=== PATIENT | male | born 1965 | race Caucasian/White ===

== ENCOUNTER → 2018-01-19 12:06 | Outpatient (CLI) | payer OTHER, SELFPAY ==
--- NOTE | 2018-01-19 12:12 | RAD_ITS ---
STUDY: X-RAY - CERVICAL SPINE REASON FOR EXAM: Male, 52 years old. Neck pain. TECHNIQUE: 5 view(s) of the cervical spine were obtained including oblique views. COMPARISON: None FINDINGS: Normal anterior atlantoaxial articulation. Normal odontoid process. There is straightening of the normal cervical lordosis. There is multi-level endplate spondylosis. Disc space narrowing at the C5-C6 and C6-C7 levels. Normal visualized intervertebral neuroforamina. The soft tissue structures are unremarkable. RAD/Cerv Spine 4 or 5 Views IMPRESSION: Anterior spondylosis at the C5-C6 and C6-C7 levels. Straightening of the normal cervical lordosis. Electronically Signed: Jozef Hernández MD at 12:57 EDT Tel [phone], Service support ,
== END ==
PROVIDERS: Family Provider Internal Medicine; PCP Internal Medicine; Visit Provider Internal Medicine
DX: M54.2 Cervicalgia (principal)
CPT/HCPCS: 72050

== ENCOUNTER → 2018-04-03 12:35 | Outpatient (CLI) | payer OTHER, SELFPAY ==
[2018-04-03 13:01] LABS: Absolute Lymphocyte Count 1.79 X10^3/ul (0.83-4.51); Absolute Neutrophil Count 3.4 X10^3/uL (2.0-7.7); Basophil# 0.05 X10^3/uL; Basophil% 0.9 % (0-1); Eosinophils% 1.8 % (0-5); Hematocrit 41.1 % (40-54); Hemoglobin 14.6 g/dl (13.0-16.5); Lymphocyte # 1.79 X10^3/ul (4.0); Lymphocyte % 31.5 % (19-41); Mean Corp Hgb Conc 35.5 g/gl (32-36); Mean Corpuscular Hgb 29.9 pg (27.0-32.0); Mean Corpuscular Volume 84.2 fL (80-94); Mean Platelet Vol. 8.9 fl (6.2-12.0); Monocyte# 0.36 X10^3/uL; Monocyte% 6.3 % (0-10); Neutrophil # 3.38 X10^3/uL (2.7-7.7); Neutrophil % 59.3 % (47-70); POSITIVE COUNT NO; POSITIVE DIFFERENTIAL NO; POSITIVE MORPHOLOGY NO; Platelet Count 335 K/mm3 (150-450); RBC Distribution Width CV 12.3 % (11.6-14.6); RBC Distribution Width SD 36.4 fl (35.1-43.9); Red Blood Count 4.88 M/mm3 (4.6-6.2); White Blood Count 5.7 K/mm3 (4.4-11.0)
[2018-04-03 13:11] LABS: ALB/GLOB Ratio 1.1 RATIO (0.9-2.4); AST(SGOT) 16 U/L (15-37); Alanine Aminotransfer ALT/SGPT 33 U/L (16-61); Alkaline Phosphatase 78 U/L (45-117); Anion Gap 9 (5-15); BUN 12 mg/dL (7-18); BUN/Creat Ratio 11.9 RATIO (10-20); CRP < 2.90 mg/L (0.0-3.0); Calcium,Total 8.6 mg/dL (8.5-10.1); Chloride 106 mmol/L (98-107); Creatinine, Serum 1.01 mg/dL (0.70-1.30); EST Glomerular Filtration Rate 82 mL/min (>60); Est Glom Filt Rate - Afr Amer 99 mL/min (>60); Globulin 3.5 g/dL (2.2-4.2); Glucose 95 mg/dL (74-106); Potassium 4.3 mmol/L (3.5-5.1); Protein, Total 7.5 g/dL (6.4-8.2); Sodium Level 143 mmol/L (136-145)
== END ==
PROVIDERS: Family Provider Internal Medicine; PCP Internal Medicine; Visit Provider Internal Medicine
DX: R10.9 Unspecified abdominal pain (principal)
CPT/HCPCS: 36415; 74177; 80053; 85025; 86140; Q9967

== ENCOUNTER → 2018-05-13 08:58 | Outpatient (CLI) | payer OTHER, SELFPAY ==
[2018-05-15 13:10] LABS: Endomysial Antibody IgA Negative (Negative); Immunoglobulin A 53 mg/dL (90-386)
[2018-05-15 13:43] LABS: t-Transglutaminase IgA <2 U/mL (0-3)
== END ==
PROVIDERS: Family Provider Internal Medicine; PCP Internal Medicine; Referring Provider Physician Assistant; Visit Provider Physician Assistant
DX: R10.84 Generalized abdominal pain (principal)
CPT/HCPCS: 36415; 82784; 83516; 86255

== ENCOUNTER 2018-05-25 07:53 | Day surgery (SDC) | payer OTHER, SELFPAY ==
[2018-05-25] VITALS (7 sets, daily range): BP systolic 94–139; BP diastolic 60–86; PULSE 77–90; RESP 16–18; TEMP 36.5–37.1; O2SAT 94–97; BMI 32.1
--- NOTE | 2018-05-25 | IMM_PTH ---
PATIENT: NICCI JACOBSON LOC: EN U#:[id number] AGE/SX: 52/M ROOM: RE05/25/[address]: Dr. Song Crane MD : 1965 BED: DIS: 05/25/2018 SPEC #: [id number] RECD: 05/25/18 14:32 STATUS: RYAN REEric #: [id number] MO: 05/25/18 00:[address]: Song Crane DEPT: IMMUNOHISTOCHEMISTRY RECD BY: Citlalli Gruber ENTERED: 05/25/18 14:39 SP TYPE: IMMUNO OTHR DR: Dr. Danuta Bejarano MD Tissues: B - Stomach, NOS Procedures: H Pylori (initial) PHYSICIAN & INSTITUTION [place] [address] SPECIMEN INFORMATION: Tissue Source: B - Antral biopsy Clinical Info: GERD; diarrhea; abdominal pain Specimen Number: [id number] CPT code: 02418 METHODOLOGY: Deparaffinized sections of prefer/formalin-fixed tissue or PAP/DQ stained slides are incubated with monoclonal/polyclonal antibodies/oligonucleotide probes. Localization is made via biotin free immunoperoxidase method. Appropriate controls are performed and reacted as expected. Results on target cell population are indicated in the following table: RESULTS: ANTIBODY / CLONE RESULT Block B H Pylori (polyclonal) negative These tests were developed and their performance characteristics determined by [facility]. They may not have been cleared or approved by the U.S. Food and Drug Administration. The FDA has determined that such clearance or approval is not necessary. INTERPRETATION: B. Antral biopsy: Negative for Helicobacter pylori organisms. SJ:rolanda 05/27/18
--- NOTE | 2018-05-25 | COLBX_PTH ---
PATIENT: NICCI JACOBSON LOC: EN U#:[id number] AGE/SX: 52/M ROOM: RE05/25/[address]: Dr. Song Crane MD : 1965 BED: DIS: 05/25/2018 SPEC #: [id number] RECD: 05/25/18 13:46 STATUS: RYAN MORRIS #: [id number] MO: 05/25/18 00:[address]: Song Crane DEPT: SURGICAL PATHOLOGY RECD BY: Jarad Eason ENTERED: 05/25/18 13:48 SP TYPE: COLON BX OTHR DR: Dr. Danuta Bejarano MD Tissues: A - Small intestine biopsy B - Gastric mucous membrane C - COLON BIOPSY Procedures: Surgery Specimen Level IV HEADER OPERATION: Colonoscopy, EGD PRE-OP DIAGNOSIS: GERD, diarrhea, abdominal pain TISSUE SUBMITTED: A - Small bowel biopsy, B - Antral biopsy for H. pylori and pathology, C - Random colon biopsies MICROSCOPIC DIAGNOSIS A. Small bowel, biopsy: A fragment of small intestinal mucosa, no pathologic diagnosis. B. Antral biopsy: Mild gastritis. C. Colon, random biopsy: Fragments of colonic mucosa, no pathologic diagnosis. SJ:rolanda 05/26/18 COMMENT B. The results of immunohistochemistry for Helicobacter pylori will be reported separately ([id number]). MICROSCOPIC DESCRIPTION Slides are reviewed. B. The specimen shows fragments of gastric mucosa with chronic inflammatory cell infiltrates in the lamina propria consisting of lymphocytes and plasma cells, consistent with mild chronic gastritis. GROSS DESCRIPTION A - Received in fixative is one container labeled with the patient's name and designated small bowel biopsy. The specimen consists of one irregular fragment of light oliver soft tissue that measures 0.8 x 0.2 x 0.1 cm. The specimen is totally submitted in one cassette. B - Received in fixative is one container labeled with the patient's name and designated antral biopsy. The specimen consists of two irregular fragments of light oliver soft tissue that in aggregate measure 0.2 x 0.2 x 0.1 cm. A few minute fragments of oliver soft tissue are also noted measuring 0.1 cm in greatest dimension. The specimen is totally submitted in one cassette. C - Received in fixative is one container labeled with the patient's name and designated random colon biopsy. The specimen consists of multiple irregular fragments of light oliver soft tissue that in aggregate measure 1 x 1 x 0.1 cm. The specimen is totally submitted in one cassette. / SJ:rg 05/25/18 TC:4 CPT: 45801 x3
--- NOTE | 2018-05-25 09:27 | OP.ENDO_ITS ---
Patient Name: Nghia Dumont Procedure Date: 05/25/2018 8:57 AM Date of : 1965 Age: 52 Procedure: Upper GI endoscopy Indications: Generalized abdominal pain, Gastro-esophageal reflux disease, Diarrhea Providers: Song Crane MD Referring MD: Song Crane MD Medicines: See the Anesthesia note for documentation of the administered medications Complications: No immediate complications. Procedure: Pre-Anesthesia Assessment: - Prior to the procedure, a History and Physical was performed, and patient medications and allergies were reviewed. The patient's tolerance of previous anesthesia was also reviewed. The risks and benefits of the procedure and the sedation options and risks were discussed with the patient. All questions were answered, and informed consent was obtained. Prior Anticoagulants: The patient has taken no previous anticoagulant or antiplatelet agents. ASA Grade Assessment: II - A patient with mild systemic disease. After reviewing the risks and benefits, the patient was deemed in satisfactory condition to undergo the procedure. After obtaining informed consent, the endoscope was passed under direct vision. Throughout the procedure, the patient's blood pressure, pulse, and oxygen saturations were monitored continuously. The gastroscope was introduced through the mouth, and advanced to the second part of duodenum. The upper GI endoscopy was accomplished without difficulty. The patient tolerated the procedure well. Scope In: 9:05:21 AM Scope Out: 9:07:56 AM Total Procedure Duration Time 0 hours 2 minutes 35 seconds Findings: The Z-line was regular and was found 40 cm from the incisors. No biopsies or other specimens were collected for this exam. Localized mild inflammation characterized by erythema was found in the prepyloric region of the stomach. Biopsies were taken with a cold forceps for Helicobacter pylori testing. The examined duodenum was normal. Biopsies for histology were taken with a cold forceps for evaluation of celiac disease. Impression: - Z-line regular, 40 cm from the incisors. No specimens collected. - Gastritis. Biopsied. - Normal examined duodenum. Biopsied. Recommendation: - Await pathology results. - Repeat upper endoscopy PRN for surveillance based on pathology results. - Return to my office in 1 week. - Continue present medications. Procedure Code(s): --- Professional --- 63524, Esophagogastroduodenoscopy, flexible, transoral; with biopsy, single or multiple Diagnosis Code(s): --- Professional --- K29.70, Gastritis, unspecified, without bleeding R10.84, Generalized abdominal pain K21.9, Gastro-esophageal reflux disease without esophagitis R19.7, Diarrhea, unspecified CPT copyright 2017 [employer]. All rights reserved. The codes documented in this report are preliminary and upon kickboxing instructor review may be revised to meet current compliance requirements. MD Song Arroyo MD 05/25/2018 9:27:15 AM This report has been signed electronically. Number of Addenda: 0 Note Initiated On: 05/25/2018 8:57 AM
--- NOTE | 2018-05-25 09:30 | OP.ENDO_ITS ---
Patient Name: Nghia Dumont Procedure Date: 05/25/2018 9:10 AM Date of : 1965 Age: 52 Procedure: Colonoscopy Indications: Generalized abdominal pain, Chronic diarrhea Providers: Song Crane MD Referring MD: Song Crane MD Medicines: See the Anesthesia note for documentation of the administered medications Patient Profile: Last Colonoscopy: more than 3 years ago. Complications: No immediate complications. Procedure: Pre-Anesthesia Assessment: - Prior to the procedure, a History and Physical was performed, and patient medications and allergies were reviewed. The patient's tolerance of previous anesthesia was also reviewed. The risks and benefits of the procedure and the sedation options and risks were discussed with the patient. All questions were answered, and informed consent was obtained. Prior Anticoagulants: The patient has taken no previous anticoagulant or antiplatelet agents. ASA Grade Assessment: II - A patient with mild systemic disease. After reviewing the risks and benefits, the patient was deemed in satisfactory condition to undergo the procedure. - Prior to the procedure, a History and Physical was performed, and patient medications and allergies were reviewed. The patient's tolerance of previous anesthesia was also reviewed. The risks and benefits of the procedure and the sedation options and risks were discussed with the patient. All questions were answered, and informed consent was obtained. Prior Anticoagulants: The patient has taken no previous anticoagulant or antiplatelet agents. ASA Grade Assessment: III - A patient with severe systemic disease. After reviewing the risks and benefits, the patient was deemed in satisfactory condition to undergo the procedure. After I obtained informed consent, the scope was passed under direct vision. Throughout the procedure, the patient's blood pressure, pulse, and oxygen saturations were monitored continuously. The colonoscope was introduced through the anus and advanced to the ileocecal valve. The colonoscopy was performed without difficulty. The patient tolerated the procedure well. The quality of the bowel preparation was good. Scope In: 9:10:55 AM Scope Withdrawal Time 0 hours 6 minutes 39 seconds Scope Out: 9:22:37 AM Total Procedure Duration Time 0 hours 11 minutes 42 seconds Findings: Multiple small-mouthed diverticula were found in the sigmoid colon. Biopsies for histology were taken with a cold forceps from the entire colon for evaluation of microscopic colitis. The exam was otherwise without abnormality. Impression: - Diverticulosis in the sigmoid colon. Biopsied. - The examination was otherwise normal. Recommendation: - Discharge patient to home. - Resume previous diet. - Continue present medications. - Await pathology results. - Repeat colonoscopy in 10 years for screening purposes. - Return to my office in 1 week. Procedure Code(s): --- Professional --- 25816, Colonoscopy, flexible; with biopsy, single or multiple Diagnosis Code(s): --- Professional --- R10.84, Generalized abdominal pain K52.9, Noninfective gastroenteritis and colitis, unspecified K57.30, Diverticulosis of large intestine without perforation or abscess without bleeding CPT copyright 2017 [employer]. All rights reserved. The codes documented in this report are preliminary and upon thermometer production worker review may be revised to meet current compliance requirements. MD Song Arroyo MD 05/25/2018 9:30:41 AM This report has been signed electronically. Number of Addenda: 0 Note Initiated On: 05/25/2018 9:10 AM
== END 2018-05-25 10:09 | disposition home or self-care (01) ==
LOC: EN 07:54 → AC 07:56
PROVIDERS: Family Provider Internal Medicine; PCP Internal Medicine; Referring Provider Surgery; Visit Provider Surgery
PROC: 0DJD8ZZ Inspection of Lower Intestinal Tract, Via Natural or Artificial Opening Endoscopic (ICD-10-PCS; CPT 45378; principal; 2018-05-25 09:10)
DX: K52.9 Noninfective gastroenteritis and colitis, unspecified (principal); K57.30 Diverticulosis of large intestine without perforation or abscess without bleeding; K29.70 Gastritis, unspecified, without bleeding; K21.9 Gastro-esophageal reflux disease without esophagitis; R19.7 Diarrhea, unspecified; R10.84 Generalized abdominal pain; F41.9 Anxiety disorder, unspecified
CPT/HCPCS: 43239; 45380; 88305; 88342; J7120; J1610

== ENCOUNTER → 2018-05-27 12:59 | Outpatient (CLI) | payer SELFPAY ==
--- NOTE | 2018-05-27 13:08 | CT_ITS ---
STUDY: CT CHEST WITHOUT CONTRAST REASON FOR EXAM: Male, 52 years old. This is an over read of cardiac calcium scoring examination. RADIATION DOSAGE (If Supplied By Facility): CTDIvol = ( 12.19 ) mGy, DLP = ( 268.17 ) mGycm TECHNIQUE: Transaxial imaging was performed without the administration of intravenous contrast material. Individualized dose optimization techniques were used for this CT. COMPARISON: None. FINDINGS: The lungs are normal. There is no demonstrated pleural abnormality. There are calcifications of the coronary arteries. There are multiple small lymph nodes within the mediastinum, which are normal in size and morphology most compatible with reactive lymph hyperplasia. Normal hilar regions. Normal unenhanced pulmonary arteries. Normal aorta arch and descending thoracic aorta. Normal osseous structures. Small hiatal hernia. CT/Limited Chest CT w/CCTA IMPRESSION: No acute abnormality is seen. Electronically Signed: Jozef Hernández MD at 9:23 EDT Tel [phone], Service support ,
[2018-05-27 13:21] VITALS: BP 147/93; PULSE 74; RESP 14; O2SAT 98; BMI 32.1
[2018-05-27 14:00] VITALS: BP 156/87; PULSE 74; RESP 16; O2SAT 92
[2018-05-27 14:30] VITALS: BP 145/89; PULSE 77; RESP 16; O2SAT 94
--- NOTE | 2018-05-27 14:30 | NURSING ---
PT DID NOT TAKE PRE-MEDS FOR CALCIUM SCORING DUE TO MISUNDERSTANDING. ON ARRIVAL, PT'S HR 74-86 BPM. IV ACCESS OBTAINED AND PT GIVEN 5 MG METOPROLOL IVP WITH 5ML NS FLUSH. PT'S HR LOWERED ENOUGH TO COMPLETE CALCIUM SCORING. PT MONITORED IN RADIOLOGY RECOVERY BAY FOR 30 MINUTES POST SCAN. ON D/C PT'S VS, 145/89, HR 77, 16 RPM. PT DENIES DIZZINESS. STEADY GAIT TO ELEVATOR.
--- NOTE | 2018-06-03 07:30 | CA.SCORE ---
Calcium Scoring Date of Study:: 05/27/18 Coronary Calcium Scoring: Coronary artery calcification. High-resolution computed tomographic imaging of the chest was performed on 05/27/2018 with particular attention paid to the coronary arteries. Images from the examination were analyzed for the presence and extent of coronary artery calcification using coronary calcification quantification software. The patient tolerated the procedure well and there were no complications. The results of the coronary calcification analysis are provided below. Left main coronary artery score of 0. Left anterior descending artery mild calcification noted in the proximal mid and distal of 36.6. Left circumflex artery mild calcification of 2.98. Right coronary artery score of 0. Total Agagston score 39.5. The above is suggestive of mild atherosclerotic plaque burden. Impression: Mild coronary atherosclerosis noted in predominantly the left anterior descending artery territory. No high-grade obstruction noted.
== END ==
PROVIDERS: Family Provider Internal Medicine; PCP Internal Medicine; Referring Provider Internal Medicine; Visit Provider Internal Medicine
DX: Z13.6 Encounter for screening for cardiovascular disorders (principal)
CPT/HCPCS: 75571; 76380; A4216

== ENCOUNTER 2018-07-23 05:33 | Day surgery (SDC) | payer OTHER, SELFPAY ==
[2018-07-08 13:59] VITALS: BMI 32.1
[2018-07-23 05:57] VITALS: BP 146/87; PULSE 94; RESP 16; TEMP 36.9; O2SAT 99; BMI 32.8
[2018-07-23] MEDS: Cefazolin 2 GM in 0.9% Normal Saline 100 ML IV (07:12)
--- NOTE | 2018-07-23 07:15 | HERN_PTH ---
PATIENT: NICCI JACOBSON LOC: [facility] – [place] U#:[id number] AGE/SX: 52/M ROOM: RE07/23/[address]: Dr. Song Crane MD : 1965 BED: DIS: 07/23/2018 SPEC #: [id number] RECD: 07/23/18 09:20 STATUS: RYAN MORRIS #: [id number] MO: 07/23/18 07:[address]: Song Crane DEPT: SURGICAL PATHOLOGY RECD BY: Juve Garibay ENTERED: 07/23/18 12:52 SP TYPE: Hernia OTHR DR: Dr. Danuta Bejarano MD Tissues: HERNIA Procedures: Surgery Specimen Level II HEADER OPERATION: Umbilical hernia repair with mesh PRE-OP DIAGNOSIS: Umbilical hernia without obstruction or gangrene TISSUE SUBMITTED: Hernia sac MICROSCOPIC DIAGNOSIS Hernia sac: Pieces of fibroadipose and fibroconnective tissue, consistent with hernia sac. SJ:rolanda 07/24/18 MICROSCOPIC DESCRIPTION Slides are reviewed. GROSS DESCRIPTION Received in fixative is one container labeled with the patient's name and designated hernia sac. The specimen consists of two irregular fragments of pink-yellow oliver soft tissue that in aggregate measure 3 x 2.2 x 1.5 cm. The smaller fragment is submitted in its entirety with a in home sales representative section of the larger fragment in one cassette. / AM:rolanda 07/23/18 TC:5 CPT: 49039
--- NOTE | 2018-07-23 07:23 | PCM.OPRPT ---
Problem List (1) Umbilical hernia without obstruction or gangrene Status: Acute Report of Operation Date of Procedure: 07/23/18 Pre-Operative Diagnosis: Umbilical hernia without obstruction and without gangrene Post-Operative Diagnosis: Same Surgery/Procedure Performed:: Umbilical hernia repair with mesh Type of Anesthesia:: General Anesthesiologist: Jl Mcguire Drains: None Estimated Blood Loss (mL): < 25 cc Description of Procedure: Patient was brought into the operating room. Placed in the supine position. Under excellent general endotracheal intubation the abdomen was sterilely prepped and draped in the usual fashion. Local was injected infraumbilically. A curvilinear incision was made. Dissection was carried down to the fascia a incarcerated umbilical hernia containing fat was identified. I transected this fat sent it to pathology for permanent sectioning. I was left with a very small defect and I did not think that placing a preperitoneal mesh was appropriate because I would have had to open the hole further. I decided to close the hole primarily. Prior to this I cleaned the fascia on top of the anterior abdominal wall free of clear transecting the umbilicus off of the fascia. Once I had approximately a silver dollar space free and clear I closed the small umbilical defect with a #1 Nurolon I then placed a peritenon mesh on top of the fascia I sutured it to the fascia with interrupted 2-0 silk's. I injected local. I brought the umbilicus back down to the fascia with a single suture of 2-0 Vicryl. I brought the subcu together with 2-0 Vicryl deep dermals of 3-0 Vicryl then a running 4-0 Monocryl. Dermabond was applied [place] cotton was applied sterile dressings were applied and the patient tolerated the procedure well. - Admit VTE Documentation VTE Present on Admission: No VTE Mechan Device Prophylaxis: SCD's VTE Pharm Prophylaxis ordered?: No Reason prophylaxis not ordered:: Treatment Not Indicated
--- NOTE | 2018-07-23 07:25 | DCINST_ITS ---
Discharge Diet: Light diet - advance as tolerated Discharge Activity: Return to Normal Activity, May Drive - when you are no longer taking narcotic pain medications., May Shower - with the bandage in place 1-2 days after surgery. Lifting Restrictions: 20 pounds for 8 weeks. Additional Activity Instructions:: Climbing stairs is fine, walking is encouraged. Sitting in bed may be uncomfortable. Sitting up using your lateral muscles (sitting up sideways) is usually more comfortable. Do not drive, work heavy equipment of sign legal documents for 24 hours. If your hernia repair was an ingunial repair, you may have scrotal swelling, an ice pack and/or athletic support can provide more comfort. Pain medications may cause nausea, you should typically eat light foods as you take your pain medications. Pain medications may also cause constipation. If you have difficulty with this, discuss with your doctor. Call your doctor if your incision/area has: Continuous Slow Oozing, Sudden Increased Bleeding, Increased Pain/ Swelling, Increased Redness, Foul Smelling Discharge Call your doctor if you observe: Fever of 101 or Higher Suture Line Care: Avoid Pulling/Pushing, Avoid Pinching/Bending Additional Dressing/Incision Instructions:: Leave the operative bandage on for 2-3 days. When you remove the bandage, leave the steri-strips on place until your follow up appointment or they fall off. Allergies/Adverse Reactions: Allergies diphenhydramine HCl [From Benadryl] Adverse Reaction (Verified 07/08/18 13:59) Unknown MADE ME HOT Medications to take at Discharge Acetaminophen [Tylenol Tablet] 650 mg PO Q6H PRN PRN #0 tab 04/21/15 Escitalopram Oxalate [Lexapro] 20 mg PO DAILY #0 tab 04/21/15 Lorazepam [Ativan] 0.5 mg PO BID PRN PRN 05/20/18 Multivitamin [Multiple Vitamins] 1 ea PO DAILY 05/20/18 Omeprazole Magnesium [Prilosec Otc] 20 mg PO BID 05/20/18 Phenylephrine/Dm/Acetaminop/GG [Mucinex Fast-Max Cold-Flu Tab] 1 ea PO Q4H PRN 07/07/18 Oxycodone HCl/Acetaminophen [Percocet 5/325] 1 - 2 tab PO Q4H PRN PRN 5 Days #30 tab 07/23/18 The following prescriptions were given: Oxycodone HCl/Acetaminophen [Percocet 5/325] 1 - 2 tab PO Q4H PRN PRN 5 Days #30 tab PRN Reason: Pain Primary Care Physician: Danuta Bejarano MD [Primary Care Provider] - Test Results: Test results from this visit will be discussed in further detail at your follow- up appointment, if applicable. Please Follow Up With: Song Crane MD - [phone] When: Plan to have a follow up appointment in 7 days. Call to schedule.
[2018-07-23] MEDS: Bupivacaine Mpf 0.5% 30 ML VIAL (07:40)
[2018-07-23 08:21] VITALS: BP 133/95; BP 146/87; PULSE 111; RESP 16; TEMP 36.1; O2SAT 94
[2018-07-23 08:30] VITALS: BP 126/83; BP 146/87; PULSE 93; RESP 16; O2SAT 98
[2018-07-23 08:47] VITALS: BP 118/83; BP 146/87; PULSE 90; RESP 18; TEMP 36.2; O2SAT 97
[2018-07-23 10:16] VITALS: BP 142/82; BP 146/87; PULSE 80; RESP 16; TEMP 36.8; O2SAT 97
== END 2018-07-23 10:29 | disposition home or self-care (01) ==
LOC: SDC 05:34 → AC 05:35
PROVIDERS: Family Provider Internal Medicine; PCP Internal Medicine; Referring Provider Surgery; Visit Provider Surgery
PROC: (CPT 49587; principal; 2018-07-23 07:00)
DX: K42.0 Umbilical hernia with obstruction, without gangrene (principal); F41.9 Anxiety disorder, unspecified; K21.9 Gastro-esophageal reflux disease without esophagitis; Z79.899 Other long term (current) drug therapy
CPT/HCPCS: 49587; 88302; J7120; C1781; J2405

== ENCOUNTER 2019-04-21 11:03 | Emergency (ER) | payer OTHER, SELFPAY ==
[2019-04-21 11:04] VITALS: BP 134/84; PULSE 81; RESP 17; TEMP 36.7; O2SAT 97; BMI 31.8
--- NOTE | 2019-04-21 11:46 | RAD_ITS ---
STUDY: X-RAY - RIGHT HAND, ATTENTION THIRD FINGER REASON FOR EXAM: Male, 53 years old. Laceration following injury. TECHNIQUE: 3 view(s) of the finger were obtained. COMPARISON: None. FINDINGS: Normal metacarpal head. Normal metacarpophalangeal joint. Normal proximal phalanx. Normal middle phalanx. Normal distal phalanx. Normal proximal interphalangeal joint. There is moderate degenerative arthrosis of the distal interphalangeal joint. RAD/Finger(s) Min 2 Views IMPRESSION: Degenerative joint disease, as described above. No fracture is seen. Electronically Signed: Jozef Hernández, at 12:49 EDT , Service support ,
--- NOTE | 2019-04-21 12:28 | ED.DCSUM_ITS ---
- ER Visit Summary Date of Service: 04/21/19 Chief Complaint: [Injury to right middle finger History of Present Illness: The patient is a 53 M [presents to the emergency department with injury to the right middle finger that occurred prior to arrival in the emergency department. Patient states that he was leaving his office when he accidentally caught his right middle finger in the door. Patient is left-hand dominant. Patient up-to-date on tetanus. Patient has no medical history otherwise.] Physical Examination: [Is a 1 Center meter laceration to the volar aspect of the distal phalanx. Patient has some diffuse bony tenderness of the distal phalanx. Patient has a 5% subungual hematoma of the proximal nail.] Test Results: [The right middle finger obtained read by myself as no acute fractures.] Emergency Department Course and Treatment: [Care-wound sterilely draped and prepped. Patient had a digital block performed using 1% lidocaine total of 6 cc. Wound cleansed with Shur-Clens and irrigated with copious saline. Using 5- 0 nylon a total of 2 single interrupted sutures placed with good wound edge approximation. Patient tired procedure well.] Treatment Plan: [Follow-up with primary care physician in 10 days for suture removal. Patient advised to return if increasing pain, redness, swelling, purulent drainage, or conditions worsen anyway.] Disposition: [Discharged home stable condition Impression: [Crush injury right middle finger Laceration right middle finger 1 cm-simple repair] This note was generated with [employer] dictation software. It may contain incorrect words, spelling, and punctuation that were not noted in review of the chart prior to signing ED Disposition - Plan for ED Patient: Referrals: Danuta Bejarano MD [Primary Care Provider] -
--- NOTE | 2019-04-21 12:30 | ED.DEP ---
ED Disposition - Plan for ED Patient: Instructions: CRUSH INJURY, Hand/Finger, LACERATION, Hand Referrals: Danuta Bejarano MD [Primary Care Provider] - 10 Day for suture removal
== END 2019-04-21 12:38 | disposition home or self-care (01) ==
LOC: ED 12:05
PROVIDERS: Emergency Provider Emergency Medicine; Family Provider Internal Medicine; PCP Internal Medicine
DX: S61.212A Laceration without foreign body of right middle finger without damage to nail, initial encounter (principal); S67.192A Crushing injury of right middle finger, initial encounter; W23.0XXA Caught, crushed, jammed, or pinched between moving objects, initial encounter; Y93.9 Activity, unspecified; Y92.9 Unspecified place or not applicable; Y99.9 Unspecified external cause status; Z79.899 Other long term (current) drug therapy
CPT/HCPCS: 12001; 73140; 99282

== ENCOUNTER → 2019-07-23 15:13 | Outpatient (CLI) | payer OTHER, SELFPAY ==
[2019-07-23 15:37] LABS: ALB/GLOB Ratio 1.3 RATIO (0.9-2.4); AST(SGOT) 19 U/L (15-37); Alanine Aminotransfer ALT/SGPT 28 U/L (16-61); Albumin, Serum 4.2 g/dL (3.2-5.0); Alkaline Phosphatase 76 U/L (45-117); Anion Gap 1 (5-15); BUN 11 mg/dL (7-18); Calcium,Total 8.9 mg/dL (8.5-10.1); Chloride 105 mmol/L (98-107); Creatinine, Serum 0.91 mg/dL (0.70-1.30); EST Glomerular Filtration Rate 91 mL/min (>60); Est Glom Filt Rate - Afr Amer 110 mL/min (>60); Globulin 3.3 g/dL (2.2-4.2); Glucose 91 mg/dL (74-106); Potassium 4.3 mmol/L (3.5-5.1); Protein, Total 7.5 g/dL (6.4-8.2); Sodium Level 139 mmol/L (136-145)
== END ==
PROVIDERS: Family Provider Internal Medicine; PCP Internal Medicine; Referring Provider Internal Medicine; Visit Provider Internal Medicine
DX: R07.9 Chest pain, unspecified (principal); R00.2 Palpitations
CPT/HCPCS: 80053; 84484

== ENCOUNTER → 2021-03-30 10:08 | Outpatient (CLI) | payer OTHER, SELFPAY ==
[2021-03-30 12:43] LABS: ALB/GLOB Ratio 1.3 RATIO (0.9-2.4); AST(SGOT) 21 U/L (15-37); Alanine Aminotransfer ALT/SGPT 38 U/L (16-61); Albumin, Serum 4.1 g/dL (3.2-5.0); Alkaline Phosphatase 73 U/L (45-117); Anion Gap 8 (5-15); BUN 13 mg/dL (7-18); BUN/Creat Ratio 15.7 RATIO (10-20); Calcium,Total 8.7 mg/dL (8.5-10.1); Chloride 104 mmol/L (98-107); Creatinine, Serum 0.83 mg/dL (0.70-1.30); EST Glomerular Filtration Rate 102 mL/min (>60); Est Glom Filt Rate - Afr Amer 123 mL/min (>60); Globulin 3.2 g/dL (2.2-4.2); Glucose 101 mg/dL (74-106); Protein, Total 7.3 g/dL (6.4-8.2); Sodium Level 140 mmol/L (136-145)
[2021-03-30 13:01] LABS: Hepatitis B Surface Antibody Non-Reactive
[2021-04-05 20:08] LABS: HEPATITIS B SURFACE AG Negative (Negative); Hepatitis A IgM Antibody Negative (Negative); Hepatitis B Core AB IgM Negative (Negative); QNTFERON TB Mitogen Value > 10.00 IU/mL (.); QNTFERON TB Nil Value 0.06 IU/mL (.); QNTFERON TB1+ Ag Value 0.07 IU/mL (.); QNTFERON TB2+ Ag Value 0.09 IU/mL (.)
[2021-04-05 20:53] LABS: Hep C Antibodies <0.1 s/co ratio (0.0-0.9); QNTIFERON TB Positive Criteria Negative (Negative)
== END ==
PROVIDERS: PCP Internal Medicine; Referring Provider Physician Assistant; Visit Provider Physician Assistant
DX: L40.0 Psoriasis vulgaris (principal); Z79.899 Other long term (current) drug therapy
CPT/HCPCS: 36415; 80053; 80074; 86480; 86706

== ENCOUNTER → 2022-06-13 | Outpatient (CLI) | payer OTHER, SELFPAY ==
[2022-06-13 14:19] LABS: Hepatitis B Surface Antibody Non-Reactive; Hepatitis B Surface Antigen Non-Reactive (Nonreactive); Hepatitis C Antibody Non-Reactive (Nonreactive)
[2022-06-18 13:08] LABS: QNTFERON TB Mitogen Value > 10.00 IU/mL (.); QNTFERON TB Nil Value 0.05 IU/mL (.); QNTFERON TB1+ Ag Value 0.05 IU/mL (.); QNTFERON TB2+ Ag Value 0.04 IU/mL (.)
[2022-06-18 15:09] LABS: Hepatitis B Core Ab Total Negative (Negative); QNTIFERON TB Positive Criteria Negative (Negative)
== END | disposition home or self-care (01) ==
PROVIDERS: PCP Internal Medicine; Referring Provider Physician Assistant; Visit Provider Physician Assistant
DX: L40.0 Psoriasis vulgaris (principal)
CPT/HCPCS: 36415; 86480; 86704; 86706; 86803; 87340

== ENCOUNTER → 2023-11-04 | Outpatient (CLI) | payer OTHER, SELFPAY ==
--- NOTE | 2023-11-04 08:06 | RAD_ITS ---
EXAMINATION: Air contrast UPPER GI SERIES INDICATION: Male, 58 years mid upper abdominal pain and acid reflux. FLUOROSCOPY TIME (if supplied): (0:40) minutes/seconds. 16.11 mGy. 16 spot films were obtained. TECHNIQUE: Radiographic and fluoroscopic images of the distal esophagus, stomach, and proximal small intestine were obtained following the oral ingestion of barium. COMPARISON: None. FINDINGS: There is no evidence for organomegaly, abnormal calcifications, or abnormal bowel gas pattern. The psoas margins and flank stripes are normal. The visualized osseous structures are normal. The mucosa of the esophagus, stomach and duodenum is normal in appearance without evidence for stricture, ulceration, mass or diverticulum. There is no evidence for hiatal hernia or gastroesophageal reflux. RAD/Upper GI Dual Contrast IMPRESSION: 1. Normal upper gastrointestinal study. Electronically Signed: Jozef Hernández MD at 15:07 EDT ,
== END | disposition home or self-care (01) ==
LOC: RAD 08:06
PROVIDERS: PCP Internal Medicine; Referring Provider Internal Medicine; Visit Provider Internal Medicine
DX: R10.13 Epigastric pain (principal)
CPT/HCPCS: 74246